=== PATIENT | female | born 1980 | race Two or more races ===

== ENCOUNTER 2017-12-21 15:30 | Emergency (ER) | payer OTHER ==
[~2017-12-21] VITALS: Ht 157.5 cm; Wt 97.5 kg
[2017-12-21] MEDS ORDERED: Acetaminophen 500mg (ES) tab ORAL ONE (16:15)
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
[2017-12-21] MEDS ORDERED: NAPROXEN250 M1 PO (17:36)
[2017-12-21 17:52] VITALS: BP 106/62
--- NOTE | 2017-12-21 19:54 | Diagnostic Imaging Report ---
EXAM: XR Chest, 2 View CLINICAL HISTORY: chest pain. TECHNIQUE: Frontal and lateral views of the chest. COMPARISON: No relevant prior studies available. FINDINGS: Lungs: Unremarkable. No consolidation. Pleural space: Unremarkable. No pneumothorax. Heart: Mildly prominent heart size. Mediastinum: Unremarkable. Bones/joints: Unremarkable. IMPRESSION: No acute cardiopulmonary disease.
== END 2017-12-21 17:52 | disposition home or self-care (01) ==
LOC: EMR 15:45
DX: S13.4XXA Sprain of ligaments of cervical spine, initial encounter (principal); V43.52XA Car driver injured in collision with other type car in traffic accident, initial encounter; Y92.410 Unspecified street and highway as the place of occurrence of the external cause; R51 Headache; R07.89 Other chest pain; R42 Dizziness and giddiness
CPT/HCPCS: 70450; 71046; 99284